=== PATIENT | female | born 1955 | race Caucasian/White ===

== ENCOUNTER 2019-11-24 15:47 | Observation (INO) ==
[2019-11-24] MEDS ORDERED: Acetaminophen 325 MG TABLET PO PRN (19:51)
[2019-11-24] MEDS ORDERED: *HR* Promethazine 25 MG/ML VIAL IVP PRN (19:51)
[2019-11-24] MEDS ORDERED: Naloxone 0.4 MG/ML INJ IVP PRN (19:51)
[2019-11-24] MEDS ORDERED: 0.9 % Sodium Chloride 1,000 ML IVC ONE (19:58)
[2019-11-24 20:26] LABS: Adenovirus Not Detected (Not Detect); Bordetella Pertussis Not Detected (Not Detect); Chlamydophila pneumoniae Not Detected (Not Detect); Coronavirus 229E Not Detected (Not Detect); Coronavirus HKU1 Not Detected (Not Detect); Coronavirus NL63 Not Detected (Not Detect); Coronavirus OC43 Not Detected (Not Detect); Human Metapneumovirus Not Detected (Not Detect); Human Rhinovirus/Enterovirus Not Detected (Not Detect); Influenza A Subtype 2009 H1 Not Detected (Not Detect); Influenza B Not Detected (Not Detect); Mycoplasma pneumoniae Not Detected (Not Detect); Parainfluenza Virus 1 Not Detected (Not Detect); Parainfluenza Virus 2 Not Detected (Not Detect); Parainfluenza Virus 3 Not Detected (Not Detect); Parainfluenza Virus 4 Not Detected (Not Detect); Respiratory Syncytial Virus Not Detected (Not Detect); SARS-CoV-2 Not Detected (Not Detect)
[2019-11-24] MEDS ORDERED: Nitroglycerin 0.4 MG TAB.SUBL SL PRN (21:11)
[2019-11-24] MEDS: Ipratropium/Albuterol Neb 3 ML IH SCH ×2 (21:27→23:30)
[2019-11-24] MEDS ORDERED: Levalbuterol Neb 1.25 MG/3 ML ONE (21:52)
[2019-11-24 21:54] LABS: ABG Base Excess -1 mEq/L (-2 to 3); ABG HCO3 26 mEq/L (21-27); ABG Oxygen Saturation 95 % (95-98); ABG PCO2 50 mmHg (35-45); ABG PH 7.32 pH Units (7.32-7.45); ABG PO2 84 mmHg (85-104); ABG TCO2 27 mEq/L (20-26)
[2019-11-24] MEDS ORDERED: Levalbuterol Neb 1.25 MG/3 ML IH ONE (21:58)
[2019-11-24 22:47] LABS: Hematocrit 44.1 % (35.3-44.9); Hemoglobin 14.2 g/dL (11.5-15.4); Mean Corpuscular HGB Conc 32.2 g/dL (31.6-35.5); Mean Corpuscular Hemoglobin 29.3 pg (28.0-33.3); Mean Corpuscular Volume 90.9 fL (83.0-100.0); Platelet Count 224 K/mcL (140-400); Red Blood Count 4.85 M/mcL (3.82-4.97); Red Cell Distribution Width 13.4 % (11.5-14.5); White Blood Count 10.4 K/mcL (4.3-11.1)
[2019-11-24] MEDS ORDERED: 0.9 % Sodium Chloride 1,000 ML IVC SCH (23:00)
[2019-11-24 23:04] LABS: Calcium 7.6 mg/dL (8.6-10.3); Potassium 3.7 mEq/L (3.5-5.1)
[2019-11-24 23:07] LABS: Lymphocytes # 0.2 K/mcL (0.6-4.6); Monocytes # 1.5 K/mcL (0.0-1.3); Neutrophils # 8.7 K/mcL (1.6-8.9); Platelet Estimate Normal (Normal)
[2019-11-24 23:08] LABS: Anisocytosis 1+ (Not Present)
[2019-11-25] MEDS ORDERED: Piperacillin/Tazobactam 3.375 GM in 0.9 % Sodium Chloride Mini Bag 100 ML IVPB SCH
[2019-11-25] MEDS ORDERED: MethylPREDNISolone 40 MG/ML VIAL IVP SCH
[2019-11-25] MEDS: Ipratropium/Albuterol Neb 3 ML IH SCH ×5 (03:34→12:48)
[2019-11-25] MEDS ORDERED: *HR* LORazepam 2 MG/ML VIAL IVP ONE (03:57)
[2019-11-25] MEDS ORDERED: *HR* Metoprolol 5 MG/5 ML VIAL IVP ONE (03:58)
[2019-11-25] MEDS ORDERED: Furosemide 40 MG/4 ML VIAL IVP ONE (04:14)
[2019-11-25] MEDS ORDERED: Furosemide 40 MG/4 ML VIAL ONE (04:18)
[2019-11-25] MEDS ORDERED: *HR* Midazolam HCl 5 MG/5 ML VIAL IVP ONE ×2 (04:26→16:54)
[2019-11-25] MEDS ORDERED: *HR* Etomidate 20 MG/10 ML AMPUL IVP ONE ×2 (04:27→16:54)
[2019-11-25] MEDS ORDERED: FentaNYL (PF) 1,000 MCG/100 ML IV.SOLN IVC SCH (04:45)
[2019-11-25] MEDS ORDERED: Midazolam HCl 50 MG/100 ML IV.SOLN IVC SCH (04:45)
[2019-11-25] MEDS ORDERED: Perflutren Lipid Microsphere 1.3 ML in 0.9 % Sodium Chloride 8.7 ML IVP PRN (05:17)
[2019-11-25 05:43] LABS: ABG Base Excess -8 mEq/L (-2 to 3); ABG HCO3 24 mEq/L (21-27); ABG Oxygen Saturation 85 % (95-98); ABG PCO2 80 mmHg (35-45); ABG PH 7.08 pH Units (7.32-7.45); ABG PO2 71 mmHg (85-104); ABG TCO2 26 mEq/L (20-26); Blood Gas Modality ASSIST CONTROL; Blood Gas VT 500 cc
[2019-11-25] MEDS ORDERED: Artificial Tears SOLN 15 ML BOTTLE BOTH EYES PRN (05:58)
[2019-11-25 06:14] LABS: INR 1.2; Prothrombin Time 13.3 Seconds (9.4-12.1)
[2019-11-25] MEDS: Norepinephrine 4 MG/254 ML IV.SOLN IVC SCH ×2 (06:35→09:50)
[2019-11-25] MEDS ORDERED: 0.9 % Sodium Chloride 500 ML ONE (06:45)
[2019-11-25] MEDS ORDERED: 0.9 % Sodium Chloride 1,000 ML ONE (07:58)
[2019-11-25 08:22] LABS: ABG Base Excess -7 mEq/L (-2 to 3); ABG HCO3 25 mEq/L (21-27); ABG Oxygen Saturation 85 % (95-98); ABG PCO2 81 mmHg (35-45); ABG PO2 70 mmHg (85-104); ABG TCO2 28 mEq/L (20-26)
[2019-11-25] MEDS ORDERED: *HR* Rocuronium Bromide 50 MG/5 ML VIAL ONE (08:23)
[2019-11-25] MEDS ORDERED: *HR* Rocuronium Bromide 50 MG/5 ML VIAL IVP ONE (08:30)
[2019-11-25] MEDS ORDERED: *HR* Heparin 5,000 UNIT/ML VIAL IVP ONE (08:47)
[2019-11-25] MEDS ORDERED: *HR* Heparin 5,000 UNIT/ML VIAL IVP PRN ×2 (08:47)
[2019-11-25] MEDS ORDERED: Pantoprazole 40 MG VIAL IVP SCH (09:00)
[2019-11-25] MEDS ORDERED: Heparin 25,000UNIT/250ML 1/2NS 25,000 UNIT/250 ML IV.SOLN IVC SCH (09:00)
[2019-11-25] MEDS ORDERED: Chlorhexidine Rinse 15 ML MOUTHWASH MM SCH (09:00)
[2019-11-25 09:05] LABS: ABG Base Excess 1 mEq/L (-2 to 3); ABG HCO3 34 mEq/L (21-27); ABG Oxygen Saturation 83 % (95-98); ABG PCO2 102 mmHg (35-45); ABG PH 7.12 pH Units (7.32-7.45); ABG PO2 66 mmHg (85-104); ABG TCO2 37 mEq/L (20-26)
[2019-11-25] MEDS ORDERED: Vasopressin 40 UNIT in D5% in Water 100 ML IVC SCH (09:15)
[2019-11-25] MEDS ORDERED: Sodium Bicarbonate 150 MEQ in D5% in Water 1,000 ML IVC SCH (09:15)
[2019-11-25] MEDS ORDERED: Phenylephrine 50 MG in 0.9 % Sodium Chloride 250 ML IVC SCH (09:15)
[2019-11-25] MEDS ORDERED: Sodium Bicarbonate 50 MEQ/50 ML VIAL IVP ONE (09:20)
[2019-11-25] MEDS ORDERED: Norepinephrine 16 MG in 0.9 % Sodium Chloride 500 ML IVC SCH (09:30)
[2019-11-25] MEDS ORDERED: Hydrocortisone Sodium Succ 100 MG/2 ML VIAL IVP SCH (09:30)
[2019-11-25 09:53] LABS: ABG Base Excess 0 mEq/L (-2 to 3); ABG HCO3 31 mEq/L (21-27); ABG Oxygen Saturation 81 % (95-98); ABG PCO2 83 mmHg (35-45); ABG PH 7.18 pH Units (7.32-7.45); ABG PO2 58 mmHg (85-104); ABG TCO2 34 mEq/L (20-26); Blood Gas VT 420 cc
[2019-11-25] MEDS: Artificial Tears SOLN 15 ML BOTTLE BOTH EYES SCH ×2 (10:20→12:34)
[2019-11-25] MEDS: Cisatracurium 200 MG in 0.9 % Sodium Chloride 180 ML IVC SCH ×2 (10:56→12:36)
[2019-11-25 11:28] LABS: Hematocrit 41.7 % (35.3-44.9); Hemoglobin 13.2 g/dL (11.5-15.4); Lymphocytes # 0.4 K/mcL (0.6-4.6); Mean Corpuscular HGB Conc 31.7 g/dL (31.6-35.5); Mean Corpuscular Hemoglobin 29.5 pg (28.0-33.3); Mean Corpuscular Volume 93.3 fL (83.0-100.0); Mean Platelet Volume 12.2 fL (9.4-12.4); Monocytes # 0.1 K/mcL (0.0-1.3); Platelet Count 204 K/mcL (140-400); Red Blood Count 4.47 M/mcL (3.82-4.97); Red Cell Distribution Width 14.1 % (11.5-14.5)
[2019-11-25] MEDS ORDERED: *HR* EPINEPHrine 1 MG/10 ML SYRINGE IVP ONE ×2 (11:30→16:54)
[2019-11-25] MEDS ORDERED: Dexmedetomidine HCl 400 MCG/100 ML MLS IVC ONE (11:35)
[2019-11-25 11:38] LABS: White Blood Count 3.8 K/mcL (4.3-11.1)
[2019-11-25 11:59] LABS: Calcium 9.2 mg/dL (8.6-10.3); Phosphorous 10.5 mg/dL (2.7-4.5); Potassium 4.2 mEq/L (3.5-5.1)
[2019-11-25 12:03] LABS: Heparin anti-factor XA UFH < 0.04 IU/mL (0.30-0.70); INR 1.2
[2019-11-25] MEDS ORDERED: Dexmedetomidine HCl 400 MCG/100 ML MLS IVC SCH (12:30)
[2019-11-25] MEDS ORDERED: Ipratropium/Albuterol Neb 3 ML IH PRN (12:49)
[2019-11-25 13:06] LABS: Neutrophils # 1.9 K/mcL (1.6-8.9); Platelet Estimate Normal (Normal)
[2019-11-25 13:21] VITALS: BP 50/34
[2019-11-25 13:41] LABS: ABG Base Excess -1 mEq/L (-2 to 3); ABG HCO3 30 mEq/L (21-27); ABG Oxygen Saturation 79 % (95-98); ABG PCO2 76 mmHg (35-45); ABG PO2 54 mmHg (85-104); ABG TCO2 32 mEq/L (20-26); Blood Gas VT 420 cc
[2019-11-25] MEDS ORDERED: Sodium Bicarbonate 50 MEQ/50 ML VIAL ONE (13:48)
[2019-11-25] MEDS ORDERED: *HR* EPINEPHrine 1 MG/10 ML SYRINGE ONE (13:59)
[2019-11-25 14:03] LABS: ABG PCO2 > 150 mmHg (35-45); ABG PO2 68 mmHg (85-104)
[2019-11-25] MEDS ORDERED: Ipratropium/Albuterol Neb 3 ML IH SCH (16:00)
[2019-11-25] MEDS ORDERED: Norepinephrine 4 MG/254 ML IV.SOLN IVC ONE (16:54)
[2019-11-25] MEDS ORDERED: Sodium Bicarbonate *INFANT* 5 MEQ/10 ML SYRINGE IVP ONE (16:54)
[2019-11-25] MEDS ORDERED: *HR* Dextrose 25% in Water (Syg) 10 ML SYRINGE IVP ONE (16:54)
[2019-11-25] MEDS ORDERED: *HR* Magnesium Sulfate 2 GM/50 ML PIGGYBACK IVPB ONE (16:54)
== END 2019-11-25 16:55 | disposition expired ==
LOC: CDU → 2ANU 21:04 → ICNU 11-25 06:07
PROVIDERS: ADMIT Student in an Organized Health Care Education/Training Program; ATTEND Student in an Organized Health Care Education/Training Program